=== PATIENT | male | born 1955 | race Caucasian/White ===

== ENCOUNTER 2024-10-16 07:47 | Emergency (ER) | payer OTHER, SELFPAY ==
[2024-10-16] VITALS (16 sets, daily range): BP systolic 108–164; BP diastolic 74–95; PULSE 65–71; RESP 14–39; TEMP 36.6–36.8; O2SAT 99–100; BMI 23.7
--- NOTE | 2024-10-16 08:01 | EKG_ITS ---
[address] [address] Test Date: 2024-10-16 Pat Name: Declan Oconnor Department: Room: Gender: Male Electrical Supervisor: : 1955 Requested By: Order Number: [id number] Reading MD: Russel Devries Measurements Intervals [place] Rate: 61 P: 54 CO: 158 QRS: -13 QRSD: 94 T: 15 QT: 418 QTc: 420 Interpretive Statements Sinus rhythm with premature atrial complexes Electronically Signed On 10-16-2024 16:16:14 PDT by Russel Devries
--- NOTE | 2024-10-16 08:01 | DI.RAD.S_ITS ---
PROCEDURE: XR CHEST 1V INDICATIONS: Chest Pain TECHNIQUE: One view of the chest was acquired. COMPARISON: None. FINDINGS: Surgical changes and devices: None. Lungs and pleura: Lungs are clear. No pleural effusions or pneumothorax. Mediastinum: Mediastinal contours appear normal. Heart size is normal. Bones and chest wall: No suspicious bony lesions. Old, healed right-sided rib fractures. Overlying soft tissues appear unremarkable. IMPRESSION: No acute cardiopulmonary abnormality is seen. Dictated by: Russel Galvez M.D. on 10/16/2024 at 8:43 Approved by: Russel Galvez M.D. on 10/16/2024 at 8:43
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
[2024-10-16 08:10] LABS: Add Manual Diff / Slide Review NO; Basophils Absolute Auto 0 /uL (0-100); Basophils Percent Auto 0.2 % (0-2); Eosinophils Absolute Auto 100 /uL (0-450); Hematocrit 41.1 % (41-53); Hemoglobin 14.2 g/dL (13.5-17.5); Lymphocytes Absolute Auto 700 /uL (1100-4500); Lymphocytes Percent Auto 20.6 % (25-40); Mean Corpuscular HGB Conc 34.4 % (30-36); Mean Corpuscular Volume 87.1 fL (80-100); Monocytes Absolute Auto 400 /uL (0-900); Monocytes Percent Auto 11.3 % (3-14); Neutrophils Absolute Auto 2300 /uL (1500-7000); Neutrophils Percent Auto 63.9 % (50-75); Platelet Count 184 X10^3/uL (150-400); Red Blood Cell Count 4.72 X10^6/uL (4.5-5.9); Red Cell Distribution Width 13.8 % (11.6-14.8); White Blood Cell Count 3.6 X10^3/uL (4.5-11.0)
[2024-10-16 08:17] LABS: INR 1.1 (0.9-1.3)
[2024-10-16 08:19] LABS: PTT Partial Thromboplastin Tim 32 SECONDS (25.1-36.5)
[2024-10-16 08:21] LABS: Alanine Aminotransferase 29 IU/L (<50); Albumin 4.3 g/dL (3.5-5.0); Albumin Globulin Ratio 1.6 (1.0-2.8); Alkaline Phosphatase 49 U/L (38-126); Aspartate Aminotransferase 31 IU/L (17-59); BUN Creatinine Ratio 18.6 (6-22); Bilirubin Total 1.3 mg/dL (0.2-1.3); Blood Urea Nitrogen 16 mg/dL (9-20); Calcium 9.2 mg/dL (8.4-10.2); Carbon Dioxide 30 mmol/L (22-32); Chloride 104 mmol/L (98-107); Creatine Kinase 182 U/L (55-170); Estimated Glomerular Filt Rate > 60 mL/min (>60); Globulin 2.7 g/dL (1.7-4.1); Glucose 101 mg/dL (70-99); HEMOLYSIS < 15 (0-50); Lipase 52 U/L (23-300); Potassium 3.8 mmol/L (3.4-5.1); Sodium 139 mmol/L (137-145)
[2024-10-16 08:33] LABS: NT-proBNP (BNP-Adult 18+) 187 pg/mL (<125); Troponin I < 0.012 ng/mL (0.01-0.034)
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
[2024-10-16] MEDS: ASPIRIN 81 MG CHEW TAB 324 MG PO (09:04)
[2024-10-16 11:33] LABS: Troponin I < 0.012 ng/mL (0.01-0.034)
== END 2024-10-16 12:30 | disposition home or self-care (01) ==
PROVIDERS: Emergency Provider Family Medicine
DX: R07.1 Chest pain on breathing (principal)
CPT/HCPCS: 36415; 71045; 71275; 80053; 81003; 82550; 83690; 83735; 83880; 84484; 85025; 85610; 85730; 93005; 99284; Q9967